=== PATIENT | female | born 1960 | race Caucasian/White ===

== ENCOUNTER 2016-09-09 11:11 | Emergency (ER) | payer OTHER ==
[~2016-09-09] VITALS: Ht 157.5 cm; Wt 65.0 kg
[2016-09-09 11:12] VITALS: BP 172/90; PULSE 86; RESP 20; TEMP 97.8; O2SAT 97
--- NOTE | 2016-09-09 12:04 | PD ---
HPI Chief Complaint: Injury Time Seen by Provider: 12:04 Travel History International Travel<30 days: No Contact w/Intl Traveler<30days: No Traveled to known affect area: No History of Present Illness HPI 55-year-old female presents to the emergency Department with complaint of left elbow and left wrist pain after tripping while walking on grass yesterday and falling. She denies hitting her head or loss of consciousness. Denies neck pain or back pain. Denies paresthesias, loss of sensation to the affected extremity. Reports decreased range of motion, not being able to extend her elbow completely. Denies fever, vomiting. Has not taken any medications or tried any treatments to alleviate her symptoms. Allergies to Inderal and penicillin. History of hypertension and atrial fibrillation. No other modifying factors or associated signs and symptoms. PFSH Past Medical History Depression: Yes Heart Rhythm Problems: Yes Cardiovascular Problems: Yes Hypertension: Yes Tetanus Vaccination: > 5 Years ?: Not Past Surgical History Abdominal Surgery: Yes Section: Yes Tympanostomy Tube: Yes Social History Alcohol Use: Yes (daily) Tobacco Use: No Substance Use: No Allergies-Medications (Allergen,Severity, Reaction): Coded Allergies: Inderal (Verified Allergy, Severe, 09/09/16) Penicillin (Verified Allergy, Severe, Rash, 09/09/16) Reported Meds & Prescriptions Reported Meds & Active Scripts Active Ibuprofen 800 Mg Tab 800 Mg PO Q6HR PRN Reported [escitalopram] 10 Mg PO DAILY Losartan-Hydrochlorothiazide 100-25 Mg Tab 1 Tab PO DAILY Dexilant (Dexlansoprazole) 60 Mg Cap 60 Mg PO DAILY Diltiazem CD 24 HR 180 Mg Caper 180 Mg PO DAILY Review of Systems Except as stated in HPI: all other systems reviewed are Neg Physical Exam Narrative GENERAL: Well-nourished, well-developed female patient, in no acute distress SKIN: Warm and dry. HEAD: Atraumatic. Normocephalic. EYES: Pupils equal and round. No scleral icterus. No injection or drainage. ENT: Mucosa pink and moist. Airway patent. NECK: Trachea midline. CARDIOVASCULAR: Regular rate. RESPIRATORY: No accessory muscle use. GASTROINTESTINAL: Flat. MUSCULOSKELETAL: Left elbow without full extension; elbow is with tenderness on palpation and mildly edematous; without erythema or ecchymosis; no obvious deformity. Left wrist is mildly edematous and without erythema, edema, ecchymosis; no obvious deformity; with tenderness on palpation; with decreased range of motion. 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 No obvious deformities. No clubbing. No cyanosis. No edema. NEUROLOGICAL: Awake and alert. Oriented 3. No obvious cranial nerve deficits. Motor grossly within normal limits. Normal speech. PSYCHIATRIC: Appropriate mood and affect; insight and judgment normal. Data Data Last Documented VS Vital Signs Date Time Temp Pulse Resp B/P Pulse Ox O2 Delivery O2 Flow Rate FiO2 09/09/16 11:12 97.8 86 20 172/90 97 Room Air Orders Elbow, Complete (4 Vws) (09/09/16 12:04) Wrist, Complete ([id number]) (09/09/16 12:04) Ibuprofen (Motrin) (09/09/16 12:15) Sling Cradle Arm (09/09/16 ) Sling Cradle Arm (09/09/16 ) MDM Medical Decision Making Medical Screen Exam Complete: Yes Emergency Medical Condition: Yes Medical Record Reviewed: Yes Differential Diagnosis Fall, elbow contusion, arm sprain, elbow fracture, wrist sprain, wrist fracture Narrative Course 55-year-old female with left elbow and wrist injury after tripping while walking on grass yesterday. Denies hitting her head or loss of consciousness. Denies neck pain or back pain. Left elbow x-ray and left wrist x-ray ordered. 1300: Left elbow x-ray concludes radial head fracture. 1302: Left wrist x-ray unremarkable. Arm sling provided for support. Discussed early mobilization with patient. Instructed patient to follow up with orthopedic. I offered the patient a prescription for a narcotic for pain and she declined at this time. Ibuprofen prescribed for home. Patient verbalizes understanding and agreement with treatment plan. Patient is medically cleared and stable for discharge. Discussed reasons to return to the emergency department. Instructed patient to follow up with primary care provider. Patient agrees with treatment plan. The patients vital signs are stable and the patient is stable for outpatient follow-up and treatment. Patient discharged home, stable and in no acute distress. Diagnosis Primary Impression: Fracture of radial head, left, closed Qualified Code: S52.125A - Closed nondisplaced fracture of head of left radius , initial encounter Referrals: Orthopedist Primary Care Physician Patient Instructions: Elbow Fracture in Adults (ED), General Instructions Additional Instructions: Ibuprofen or Tylenol as directed and as needed for pain and inflammation Rest and immobilize the affected extremity Apply ice to reduce swelling to affected area Follow-up with primary care provider Follow-up with orthopedic Return to the emergency department immediately with worsening of symptoms Med/Other Pt SpecificInfo: Prescription(s) given Scripts Ibuprofen 800 Mg [id number] Mg PO Q6HR PRN (PAIN) #30 TAB Ref 0 Prov:Marivel Lyons 09/09/16 Disposition: 01 DISCHARGE HOME Condition: Stable Marivel Lyons Sep 09, 2016 12:04
[2016-09-09] MEDS ORDERED: DILT180C56 PO (12:07)
[2016-09-09] MEDS ORDERED: LOSA100T2 PO (12:07)
[2016-09-09] MEDS ORDERED: escitalopram PO (12:07)
[2016-09-09] MEDS ORDERED: DEXI60CA PO (12:07)
[2016-09-09] MEDS ORDERED: IBUPROFEN 800 MG TAB PO ONE (12:15)
--- NOTE | 2016-09-09 12:47 | RADRPT ---
EXAM DATE/TIME: 09/09/2016 12:35 [facility] COMPARISON: No previous studies available for comparison. INDICATIONS : Left elbow pain, fell yesterday. MEDICAL HISTORY : None. SURGICAL HISTORY : ENCOUNTER: Initial ACUITY: 1 day PAIN SCORE: 10/10 LOCATION: Left elbow FINDINGS: There is a fracture of the radial head with approximately 1 mm depression. CONCLUSION: Radial head fracture. Jim Mcclendon MD on September 09, 2016 at 12:45 Board Certified Radiologist. This report was verified electronically.
--- NOTE | 2016-09-09 12:48 | RADRPT ---
EXAM DATE/TIME: 09/09/2016 12:41 [facility] COMPARISON: No previous studies available for comparison. INDICATIONS : Left wrist pain, fell yesterday. MEDICAL HISTORY : None. SURGICAL HISTORY : None. ENCOUNTER: Initial ACUITY: 1 day PAIN SCORE: 10/10 LOCATION: Left wrist FINDINGS: No definite fractures, or dislocations are identified. No definite lytic or sclerotic lesion is seen . The joint spaces are well maintained. There is thickening of the distal radial metaphyseal cortex may be due to old healed fracture. IMPRESSION: Unremarkable study. Jim Mcclendon MD on September 09, 2016 at 12:46 Board Certified Radiologist. This report was verified electronically.
[2016-09-09] MEDS ORDERED: IBUP800T23 PO (13:01)
[2016-09-10] MEDS ORDERED: LEXA10TA PO (11:42)
== END 2016-09-09 13:40 | disposition home or self-care (01) ==
LOC: NEPK 11:11
DX: S52.122A Displaced fracture of head of left radius, initial encounter for closed fracture (principal); I10 Essential (primary) hypertension; Y93.01 Activity, walking, marching and hiking; W01.0XXA Fall on same level from slipping, tripping and stumbling without subsequent striking against object, initial encounter
CPT/HCPCS: 73080; 73110; 99283